=== PATIENT | male | born 1970 | race Caucasian/White ===

== ENCOUNTER 2023-01-05 12:55 | Emergency (ER) | payer BC, OTHER ==
[~2023-01-05] VITALS: Ht 182.9 cm; Wt 108.9 kg
[2023-01-05 13:11] LABS: BASOPHILS 0.7 % (0-2); EOSINOPHILS 1.6 % (0-6); HEMATOCRIT 46.3 % (35.0-50.0); HEMOGLOBIN 15.8 g/dL (12.0-18.0); LYMPHOCYTES 13.4 % (24-44); MCH 29.7 (27-36); MCHC 34.1 g/dl (30-36); MCV 87.1 fl (81-99); MONOCYTES 5.5 % (0-12); NEUTROPHILS 78.8 % (39-80); PLATELET COUNT 307 K/uL (140-440); RBC 5.32 M/ul (4.3-5.7); RDW 13.4 (10.5-15.0)
[2023-01-05] MEDS ORDERED: LIPITOR40 MG PO (13:11)
[2023-01-05 13:35] LABS: ALBUMIN 4.4 g/dL (3.4-5.0); ALBUMIN/GLOBULIN RATIO 1.22 (1.1-2.4); ANION GAP 13.6 (7-21); BILIRUBIN, TOTAL 0.5 ng/dL (0.2-1.0); BUN/CREATININE RATIO 13.63 (6.0-28.6); CALCIUM 9.2 mg/dL (8.5-10.1); CREATININE, SERUM 0.88 mg/dL (0.70-1.30); MAGNESIUM 1.7 mg/dL (1.8-2.4); POTASSIUM 3.6 mmol/L (3.5-5.1)
[2023-01-05 15:53] VITALS: BP 142/76
--- NOTE | 2023-01-05 22:27 | EKG ---
[facility] [address] [facility] [place] [address] Signed Sinus rhythm with premature atrial complexes Otherwise normal ECG When compared with ECG of 05-JAN-2023 13:04, (Unconfirmed) No significant change was found Confirmed by Brooklyn Good MD () on 01/05/2023 10:26:56 PM Electronically Signed By: BROOKLYN GOOD MD 01/05/232226 PATIENT NAME: MELANIE DISLA Electrocardiogram DATE OF : 74 PHYSICIAN: BROOKLYN GOOD MD REPORT #: [id number] REPORT IS CONFIDENTIAL AND NOT TO BE RELEASED WITHOUT AUTHORIZATION
== END 2023-01-05 15:53 | disposition home or self-care (01) ==
LOC: ED 12:55
PROVIDERS: Emergency Medicine
DX: R07.89 Other chest pain (principal); Z79.899 Other long term (current) drug therapy
CPT/HCPCS: 36415; 71045; 80053; 83735; 84484; 85025; 93005; 93010; A9270; J1885